=== PATIENT | female | born 1985 | race Two or more races ===

== ENCOUNTER 2019-06-16 07:57 | Inpatient (IN) | payer OTHER ==
[~2019-06-16] VITALS: Ht 162.6 cm; Wt 78.6 kg
[2019-06-17 08:30] VITALS: BP 120/82
== END 2019-06-17 14:51 | disposition home or self-care (01) | DRG 807 ==
LOC: LDOP 07:57 → LDIP 08:27 → 2NW 15:08
PROVIDERS: ADMIT Obstetrics & Gynecology; ATTEND Obstetrics & Gynecology
PROC: 10E0XZZ Delivery of Products of Conception, External Approach (ICD-10-PCS; principal; 2019-06-16)
PROC: 0HQ9XZZ Repair Perineum Skin, External Approach (ICD-10-PCS; 2019-06-16)
PROC: 3E0R3BZ Introduction of Anesthetic Agent into Spinal Canal, Percutaneous Approach (ICD-10-PCS; 2019-06-16)
PROC: 00HU33Z Insertion of Infusion Device into Spinal Canal, Percutaneous Approach (ICD-10-PCS; 2019-06-16)
DX: O70.0 First degree perineal laceration during delivery (principal); Z37.0 Single live birth; Z3A.39 39 weeks gestation of pregnancy
CPT/HCPCS: 36415; 85025; 86850; 86900; G0378; J2405; J3010; J3490; J7120